=== PATIENT | female | born 1965 | race Caucasian/White ===

== ENCOUNTER 2017-09-30 07:38 | Emergency (ER) | payer OTHER ==
[2017-09-30 07:55] VITALS: BP 137/77
--- NOTE | 2017-09-30 08:47 | PHYS DOC ---
Past History Past Medical History: Arthritis, Diabetes Past Surgical History: Other Alcohol Use: None Drug Use: None Adult General Chief Complaint Chief Complaint: SHOULDER INJURY [facility] HPI Patient is a 52 year old F who presents with shoulder pain that started approximately one week ago after snow tubing that [facility]. When he states that she had multiple falls that day none of which were particularly worse than the other. She is unsure what caused her injury. Her pain worsened the next morning. She was seen in the emergency room 3 days after her outing at [facility] and did have normal imaging of her shoulder. She has not used her shoulder as much since that time. She feels that her range of motion has progressively decreased and her pain has increased. Her pain is not radiating. She has no associated numbness or weakness. She has no other associated symptoms. Her pain is significant family worse with movement and improved with rest and positioning. She does have muscle relaxers and pain medication at home. He feels that they are not working well. She has no other known exacerbating or alleviating factors. Review of Systems Review of Systems Constitutional: Denies fever or chills [] Eyes: Denies change in visual acuity, redness, or eye pain [] HENT: Denies nasal congestion or sore throat [] Respiratory: Denies cough or shortness of breath [] Cardiovascular: No additional information not addressed in HPI [] GI: Denies abdominal pain, nausea, vomiting, bloody stools or diarrhea [] : Denies dysuria or hematuria [] Musculoskeletal: Denies back pain Integument: Denies rash or skin lesions [] Neurologic: Denies headache, focal weakness or sensory changes [] Endocrine: Denies polyuria or polydipsia [] All other systems were reviewed and found to be within normal limits, except as documented in this note. Family History Family History No pertinent family medical history was reported Current Medications Current Medications Current medications were reviewed Allergies Allergies Allergies were reviewed Physical Exam Physical Exam Constitutional: Well developed, well nourished, no acute distress, non-toxic appearance. [] HENT: Normocephalic, atraumatic, Eyes: EOMI, conjunctiva normal, no discharge. [] Neck: Normal range of motion, no tenderness, supple, no stridor. [] Cardiovascular:Heart rate regular rhythm, Lungs & Thorax: Bilateral breath sounds clear to auscultation [] Abdomen: Bowel sounds normal, soft, no tenderness, no masses, no pulsatile masses. [] Skin: Warm, dry, no erythema, no rash. [] Extremities: no cyanosis, no clubbing, ROM intact, no edema. [] No swelling or obvious injury observed on the right shoulder. Generalized tenderness to palpation around the right shoulder and right neck without midline tenderness. Moderate pain with range of motion and tightness noted in particular with aBduction. Strength testing limited due to pain Neurologic: Alert and oriented X 3, normal motor function, normal sensory function, no focal deficits noted. [] Psychologic: Affect normal, judgement normal, mood normal. [] Current Patient Data Vital Signs Vital Signs Date Time Temp Pulse Resp B/P (MAP) Pulse Ox O2 Delivery O2 Flow Rate FiO2 09/30/17 07:55 98.0 78 16 100 EKG EKG [] Radiology/Procedures Radiology/Procedures [] Course & Med Decision Making Course & Med Decision Making Pertinent Labs and Imaging studies reviewed. (See chart for details) Muscle relaxers, and pain medications were offered and declined. Imaging was declined Dragon Disclaimer Dragon Disclaimer This electronic medical record was generated, in whole or in part, using a voice recognition dictation system. Departure Departure: Impression: Primary Impression: Right shoulder strain Additional Impression: Adhesive capsulitis of right shoulder Disposition: HOME, SELF-CARE Condition: STABLE Referrals: LEONARD STEELE (PCP) Patient Instructions: Adhesive Capsulitis, Shoulder Exercises, Generic, SportsMed Additional Instructions: Tatiana was seen in the emergency department for shoulder pain. No emergency medical condition was found on history or physical exam. Radiology report from [facility] was reviewed showing a normal x-ray. Her symptoms are most consistent with muscle strain now complicated by adhesive capsulitis. She was encouraged to continue range of motion activities. She was offered muscle relaxers. She was encouraged to consider physical therapy for further management. She was also advised follow-up with her primary care doctor for further management. Problem Qualifiers Primary Impression: Right shoulder strain Encounter type: subsequent encounter Qualified Codes: S46.911D - Strain of unspecified muscle, fascia and tendon at shoulder and upper arm level, right arm , subsequent encounter LORA BUTLER MD Sep 30, 2017 08:47
== END 2017-09-30 08:50 | disposition home or self-care (01) ==
LOC: ER 07:38
DX: S46.911A Strain of unspecified muscle, fascia and tendon at shoulder and upper arm level, right arm, initial encounter (principal); M75.01 Adhesive capsulitis of right shoulder; R29.6 Repeated falls; E11.9 Type 2 diabetes mellitus without complications; W19.XXXA Unspecified fall, initial encounter; Y93.89 Activity, other specified; Y99.8 Other external cause status; Y92.89 Other specified places as the place of occurrence of the external cause
CPT/HCPCS: 99281

== ENCOUNTER → 2018-05-30 | Day surgery (SDC) | payer OTHER ==
[~2018-05-30] MED LIST: ALBUTEROL SULFATE 2.5 MG/3 ML NEBU. NEB PRN; ATOR20TA PO; ATROPINE 0.5 MG/5 ML DISP.SYRIN. IV PRN; CELE200C PO; GABA800T2 PO; LIDOCAINE 2% PF Vial for OR 5 ML VIAL. ONE; LISI-334 PO; METF100010 PO; NALOXONE 0.4 MG/ML VIAL. IV PRN; ONDANSETRON PF 4 MG/2 ML VIAL. IV PRN; PROPOFOL 40 ML IV ONE; SULF500T7 PO; TRAM50TA PO
[2018-05-30] MEDS: IV RINGERS SOLUTION,LACTATED 1,000 ML IV SCH (10:04)
[2018-05-30 12:00] VITALS: BP 113/78
== END | disposition home or self-care (01) ==
LOC: SURG 10:25
PROVIDERS: ATTEND Surgery
DX: Z12.11 Encounter for screening for malignant neoplasm of colon (principal); K57.30 Diverticulosis of large intestine without perforation or abscess without bleeding; I10 Essential (primary) hypertension; E11.9 Type 2 diabetes mellitus without complications; Z79.899 Other long term (current) drug therapy; Z79.84 Long term (current) use of oral hypoglycemic drugs; Z90.710 Acquired absence of both cervix and uterus
CPT/HCPCS: 45378; 82947; J2704; J7120; J2001

== ENCOUNTER 2021-09-14 08:42 | Emergency (ER) | payer OTHER ==
[~2021-09-14] VITALS: Ht 162.6 cm; Wt 63.6 kg
[~2021-09-14 08:42] MED LIST changes: -ALBUTEROL SULFATE 2.5 MG/3 ML NEBU. NEB PRN; -ATROPINE 0.5 MG/5 ML DISP.SYRIN. IV PRN; -GABA800T2 PO; +GABA800T5 PO; -LIDOCAINE 2% PF Vial for OR 5 ML VIAL. ONE; -LISI-334 PO; +LISI20TA18 PO; -NALOXONE 0.4 MG/ML VIAL. IV PRN; -ONDANSETRON PF 4 MG/2 ML VIAL. IV PRN; -PROPOFOL 40 ML IV ONE
[2021-09-14 08:48] VITALS: BP 119/75
[2021-09-14] MEDS ORDERED: LIDOCAINE 2%/EPI 1:100,000 20 ML VIAL. IJ ONE (09:15)
[2021-09-14] MEDS ORDERED: DIPHTH,PERTUSS(ACELL),TET TOX 0.5 ML DISP.SYRIN. VAX IM ONE (09:15)
[2021-09-14] MEDS ORDERED: NEOMY/BACITR/POLYMYXIN OINT PACKET. TP ONE (09:15)
--- NOTE | 2021-09-14 09:35 | PHYS DOC ---
Past History Past Medical History: Arthritis, Diabetes Past Surgical History: Hip Replacement, Other Smoking: Cigarettes Alcohol Use: None Drug Use: None General Adult EDM: Chief Complaint: LACERATION/AVULSION HPI: HPI: 56-year-old female presents with report of mechanical trip and fall striking right side of her face on the floor. Patient reports she tripped on curb and fell. 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 Patient denies any loss of consciousness. Denies use of blood thinners. Denies nausea or vomiting. Patient reports injury occurred at approximately 0720. Patient reports laceration above right eye. Patient reports some slight headache primarily to area of contusion. Denies any epistaxis. Patient reports pain is currently a 2 out of 10. Patient reports taking Tylenol at approximately 0800. Patient reports last tetanus booster was greater than 5 years ago. Review of Systems: Review of Systems: Constitutional: Denies fever or chills Eyes: Denies redness or eye pain HENT: Denies nasal congestion or epistaxis Respiratory: Denies cough or shortness of breath Cardiovascular: Denies chest pain or palpitations GI: Denies abdominal pain, nausea, or vomiting Musculoskeletal: Denies neck pain or joint pain Integument: Reports contusion and laceration near right eyebrow Neurologic: Reports headache; denies focal weakness or sensory changes Complete systems were reviewed and found to be within normal limits, except as documented in this note. Current Medications: Current Meds: Current Medications Medications (Trade) Dose Ordered Sig/Acosta Start Time Stop Time Status Last Admin Dose Admin Diphtheria/ Tetanus/Acell Pertussis (Boostrix) 0.5 ml ONCE ONCE 09/14/21 09:15 09/14/21 09:16 DC 09/14/21 09:20 0.5 ML Lidocaine/ Epinephrine (Xylocaine 2%-Epi 1:100,000) 20 ml 1X ONCE 09/14/21 09:15 09/14/21 09:16 DC 09/14/21 09:19 20 ML Neomycin/ Polymyxin/ Bacitracin (Triple Antibiotic Ointment) 1 pkt 1X ONCE 09/14/21 09:15 09/14/21 09:16 DC 09/14/21 09:19 1 PKT Allergies: Allergies: Allergies Coded Allergies Type Severity Reaction Last Updated Verified No Known Drug Allergies 05/22/18 No Physical Exam: PE: Constitutional: Well developed, well nourished, no acute distress, non-toxic appearance HENT: Normocephalic, small contusion surrounding 2cm laceration just lateral to right eyebrow, TMs clear bilaterally, nares clear Eyes: PERRL, EOMI, conjunctiva normal, no discharge, no nystagmus noted Neck: Normal range of motion, no midline tenderness, supple Lungs & Thorax: No respiratory distress, equal chest rise and fall Skin: Warm, dry, no erythema, 2cm laceration near right eyebrow as above Extremities: No tenderness, ROM intact, no edema Neurologic: Alert and oriented X 3, normal motor function, normal sensory function, cerebellar function intact, no focal deficits noted Psychologic: Affect normal, judgment normal Current Patient Data: Vital Signs: Vital Signs Date Time Temp Pulse Resp B/P (MAP) Pulse Ox O2 Delivery O2 Flow Rate FiO2 09/14/21 08:48 98.0 78 16 119/75 (90) 98 Room Air EKG: EKG: [] Radiology/Procedures: Radiology/Procedures: [] Heart Score: C/O Chest Pain: N/A Course & Med Decision Making: Course & Med Decision Making Patient presents status post mechanical trip and fall striking the right side of her head causing a laceration. Patient is not on any blood thinners. Pain is minimal. Patient mentating normally with normal neurological exam. No midline cervical spine tenderness noted. Denies any vomiting. CT imaging not warranted at this time given patient's neurological status and lack of concerning sym ptoms or history. Tetanus updated. Wound cleaned, repaired, and dressed. Patient tolerated procedure well. Patient stable for discharge with outpatient follow-up with PCP. Discussed findings and plan with patient, who acknowledges understanding and agreement. Gee Disclaimer: Gee Disclaimer: This electronic medical record was generated, in whole or in part, using a voice recognition dictation system. Laceration/Wound Repair Laceration/Wound Repair : Wound Location: face (Lateral to right eyebrow) Wound's Depth, Shape: linear Wound Length (cm): 2 Wound Explored: clean Irrigated w/ Saline (ccs): 100 Anesthesia: Lidocaine w/ Epi (2%) Volume Anesthetic (ccs): 3 Wound Debrided: minimal Wound Repaired With: sutures Suture Size/Type: 6:0, nylon Number of Sutures: 5 Progress Verbal consent obtained. Time out performed. Hand hygiene utilized. Wound cleaned with ChloraPrep. Anesthesia obtained via a 30-gauge hypodermic needle with (3) mL's of lidocaine 2% with epinephrine. Irrigation performed. Wound well approximated with 6-0 Nylon simple interrupted sutures x 5. Empiric antibiotic ointment applied prior to sterile dressing. Patient tolerated procedure well and without difficulty Departure Departure: Impression: Primary Impression: Facial laceration Qualified Codes: S01.81XA - Laceration without foreign body of other part of head, initial encounter Disposition: HOME / SELF CARE / HOMELESS Condition: STABLE Referrals: LEONARD STEELE (PCP) Patient Instructions: Laceration Care, Adult, [id number] Additional Instructions: Do not soak your wound. You may shower. Clean wound daily with soap and water. Change dressing 2 times daily. Use over the counter antibiotic ointment with each dressing change. Sutures need to be removed in 5 days. Present to your family doctor or local urgent care for removal. You may also present to the ED but it will be an additional visit/charge. After suture removal you may use Vitamin E ointment to soften the wound and prevent scarring. Use [id number] ibuprofen and or Tylenol for pain or discomfort. ELLY HELMS DO Sep 14, 2021 09:35
== END 2021-09-14 10:00 | disposition home or self-care (01) ==
LOC: ER 08:42
DX: S01.111A Laceration without foreign body of right eyelid and periocular area, initial encounter (principal); E11.9 Type 2 diabetes mellitus without complications; F17.210 Nicotine dependence, cigarettes, uncomplicated; W01.198A Fall on same level from slipping, tripping and stumbling with subsequent striking against other object, initial encounter; Y93.89 Activity, other specified; Y92.89 Other specified places as the place of occurrence of the external cause; Y99.8 Other external cause status
CPT/HCPCS: 12011; 90471; 90715; 99283-25